=== PATIENT | female | born 1950 | race Two or more races ===

== ENCOUNTER 2018-02-25 15:31 | Emergency (ER) | payer SELFPAY ==
[~2018-02-25] VITALS: Ht 177.8 cm; Wt 90.0 kg
[2018-02-25 15:37] VITALS: BP 146/88
[2018-02-25] MEDS ORDERED: ALBUTEROL (0.083%) 2.5MG/3ML NEB HHN ONE (16:15)
== END 2018-02-25 16:59 | disposition home or self-care (01) ==
LOC: ER 15:31 → EDBD 15:31 → ER 16:59
DX: R05 Cough (principal); R09.81 Nasal congestion
CPT/HCPCS: 99283; J7611